=== PATIENT | male | born 1965 | race Caucasian/White ===

== ENCOUNTER 2020-03-27 15:22 | Emergency (ER) | payer BC ==
[~2020-03-27] VITALS: Ht 182.9 cm; Wt 104.3 kg
[2020-03-27] MEDS ORDERED: IBUPROFEN 600 MG TAB PO STA (15:59)
[2020-03-27] MEDS ORDERED: PIPER-TAZ 3.375 GM 50 ML IV ONE (16:00)
[2020-03-27] MEDS ORDERED: HYDROCODONE/APAP 5MG-325MG TAB PO ONE (16:00)
== END 2020-03-27 19:03 | disposition home or self-care (01) ==
LOC: FSED 16:00
DX: L03.114 Cellulitis of left upper limb (principal); F17.210 Nicotine dependence, cigarettes, uncomplicated
CPT/HCPCS: 80053; 85025; 87040; 96365; 99283; J2543